=== PATIENT | male | born 1970 | race Caucasian/White ===

== ENCOUNTER 2021-04-20 06:31 | Day surgery (SDC) | payer BC, MEDICAID, OTHER ==
[2021-04-20] MEDS ORDERED: Propofol 200 MG/20 ML SDV ONE ×2 (07:06→08:41)
[2021-04-20] MEDS ORDERED: fentaNYL 100 MCG/2 ML SDV ONE (07:06)
[2021-04-20] MEDS ORDERED: Midazolam 1 MG/ML 2 ML SDV ONE (07:06)
[2021-04-20] MEDS ORDERED: Sodium Chloride 0.9% 1,000 ML IV SCH (07:30)
[2021-04-20 09:57] VITALS: BP 110/80; PULSE 62
--- NOTE | 2021-04-21 08:27 | OR ---
DATE OF PROCEDURE: 04/20/2021 SURGEON: Justin Chaudhary MD PROCEDURE: Colonoscopy. FINDINGS: Sigmoid colon polyp, approximately 5 mm, completely removed using cold biopsy forceps. COMPLICATIONS: None. [employer]: None. ANESTHESIA: MAC. PREOPERATIVE DIAGNOSIS: Screening colonoscopy. POSTOPERATIVE DIAGNOSIS: Screening colonoscopy. RISKS: Risks, benefits, alternatives, and limitations including but not limited to infection, bleeding, perforation, false positives, and false negatives were explained to patient. They wished to proceed. PROCEDURE IN DETAIL: The patient was placed in left lateral decubitus position. Digital rectal exam was performed without abnormality. Scope was introduced and advanced atraumatically to the ileocecal valve. The scope was brought back to the ascending, transverse, and descending colon and retroflexed. Within the sigmoid colon, there was a small 5 mm polyp identified and completely removed using cold biopsy forceps. No other abnormalities noted. No old or new blood. No masses. No evidence of colitis. The prep was acceptable, approximately 90% of luminal surface could be seen. Greater than 8 minutes was spent removing the scope. The patient tolerated the procedure well. Justin Chaudhary MD /[id number]
== END 2021-04-20 11:00 | disposition home or self-care (01) ==
LOC: JP.SDS 06:31
PROVIDERS: ATTEND Surgery
DX: Z12.11 Encounter for screening for malignant neoplasm of colon (principal); K63.5 Polyp of colon
CPT/HCPCS: 88305; J2250; J2704; J3010; J7030